=== PATIENT | female | born 1955 | race Caucasian/White ===

== ENCOUNTER 2018-09-14 07:10 | Day surgery (SDC) | payer MEDICAID ==
[~2018-09-14] VITALS: Ht 154.9 cm; Wt 71.2 kg
[2018-09-14] MEDS ORDERED: LACTATED RINGERS 1,000 ML IV SCH (10:20)
[2018-09-14] MEDS ORDERED: ROCURONIUM BROMIDE 10MG/ML VIAL 5ML IV ONE (12:14)
[2018-09-14] MEDS ORDERED: PROPOFOL 200MG/20ML VIAL IV ONE (12:14)
[2018-09-14] MEDS ORDERED: FENTANYL CITRATE/PF 50MCG/ML 2ML VIAL ONE (12:14)
[2018-09-14] MEDS ORDERED: MIDAZOLAM HCL 2 MG/2 ML VIAL ONE (12:14)
[2018-09-14] MEDS ORDERED: NEOSTIGMINE METHYLSULFATE 1MG/ML 10 ML VIAL ONE (12:14)
[2018-09-14] MEDS ORDERED: GLYCOPYRROLATE 0.2 MG/ML 2ML VIAL ONE (12:16)
[2018-09-14] MEDS ORDERED: SUCCINYLCHOLINE CHLORIDE 200MG/10ML IV ONE (12:22)
[2018-09-14] MEDS ORDERED: BUPIVACAINE HCL 0.5% (5MG/ML) 50ML ONE (12:26)
[2018-09-14] MEDS ORDERED: SKIN ADHESIVE 0.7 GM EA TOP ONE (12:26)
== END 2018-09-14 15:30 | disposition home or self-care (01) ==
LOC: OR 07:10
PROVIDERS: ATTEND Surgery
DX: K80.20 Calculus of gallbladder without cholecystitis without obstruction (principal); I10 Essential (primary) hypertension; E11.9 Type 2 diabetes mellitus without complications; D64.9 Anemia, unspecified
CPT/HCPCS: 47562; 82962; 88304; G0168; J0330; J2250; J2704; J2710; J3010; J3490